=== PATIENT | female | born 1985 | race Caucasian/White ===

== ENCOUNTER 2016-07-19 11:05 | Emergency (ER) | payer BC ==
[2016-07-19] MEDS ORDERED: Ketorolac INJ* 60 MG/2 ML VIAL IM ONE (11:47)
--- NOTE | 2016-07-19 11:51 | UC ---
Dental HPI - HPI Summary HPI Summary: 30 female presents with complaints of right lower sided dental/mouth pain that began 2 days ago and worsened over night. Patient states she needs a tooth pulled and has issues with wisdom tooth in that area as well however has not had the procedure done yet. Has appointment with dentist tomorrow 07/20/16. Has tried taking tylenol 1500mg for pain with relief. Denies difficulty breathing or swallowing, fever/chills and nausea vomiting. Admits to swelling of right cheek. Denies discharge and blood. Has had similar symptoms in past with previous dental infections. - History of Current Complaint Chief Complaint: UCDentalProblem Stated Complaint: RIGHT SIDE MOUTH PAIN Time Seen by Provider: 07/19/16 11:40 Hx Obtained From: Patient Hx Last Menstrual Period: 05/31/16 ?: No Onset/Duration: Sudden Onset Severity: Moderate Pain Intensity: 9 Pain Scale Used: 0-10 Numeric Aggravating: Chewing Alleviating: Nothing Related History: Previous Dental Care on Same Tooth, Swelling - Allergies/Home Medications Allergies/Adverse Reactions: Allergies Allergy/AdvReac Type Severity Reaction Status Date / Time No Known Allergies Allergy Verified 07/19/16 11:31 PMH/Surg Hx/FS Hx/Imm Hx Endocrine History Of: Denies: Diabetes, Thyroid Disease Cardiovascular History Of: Reports: Hypertension Denies: Cardiac Disorders Respiratory History Of: Denies: Asthma - Surgical History Surgical History: None - Family History Known Family History: Positive: None - Social History Alcohol Use: None Substance Use Type: None Smoking Status (MU): Never Smoked Tobacco - Immunization History Most Recent Influenza Vaccination: Fall 2014 Vaccination Up to Date: Yes Review of Systems Constitutional: Negative Skin: Negative Eyes: Negative ENT: Dental Pain Respiratory: Negative Cardiovascular: Negative Gastrointestinal: Negative Motor: Negative Musculoskeletal: Negative Neurological: Negative All Other Systems Reviewed And Are Negative: Yes Physical Exam Triage Information Reviewed: Yes Appearance: Well-Appearing, No Pain Distress, Well-Nourished, Obese Vital Signs: Initial Vital Signs Temp 97.7 F 07/19/16 11:24 Pulse 76 07/19/16 11:24 Resp 16 07/19/16 11:24 Pulse Ox 99 07/19/16 11:24 Vital Signs Reviewed: Yes Eyes: Positive: Conjunctiva Clear ENT: Positive: Normal ENT inspection, Hearing grossly normal, Pharynx normal, TMs normal, Other: - patent airway and uvula midline. Negative: Nasal congestion, Nasal drainage, Tonsillar swelling, Tonsillar exudate, Trismus, Muffled/hoarse voice Dental: Positive: Gross Decay/Caries @, Dental Fracture @ - lower right molars, discolorations, no visualized abscess discharge or bleeding, Abscess @ - palpable firm small nodule noted lower right jaw, area obvious edema. Negative : Cervical Lymphadenopathy Neck: Positive: Supple, Nontender, No Lymphadenopathy Respiratory: Positive: Chest non-tender, Lungs clear, Normal breath sounds, No respiratory distress, No accessory muscle use Cardiovascular: Positive: RRR, No Murmur, Pulses Normal Musculoskeletal: Positive: Strength Intact Neurological: Positive: Alert Skin Exam: Normal Dental Complaint Course/Dx - Course Course Of Treatment: given toradol for pain while in office. antibiotics and pain mangement. dentist appointment tomorrow. follow up. aware of worsening signs and symptoms. swish with salt water. - Differential Dx/Diagnosis Differential Diagnosis/Dx: Dental Abscess, Dental Caries, Fractured Tooth, Other Provider Diagnoses: Dental abscess/dental infection, dental pain Discharge - Discharge Plan Condition: Stable Disposition: HOME Prescriptions: Amoxicillin CAP* [Amoxicillin 500 MG CAP*] 500 mg PO Q12H #20 cap Ibuprofen TAB* [Motrin TAB* 800 MG] 800 mg PO Q6H #15 tab Patient Education Materials: Dental Abscess (ED), Toothache (ED) Referrals: Lu Wang MD [Medical Doctor] - Additional Instructions: Take prescribed antibiotics as directed, even if symptoms improve. Take prescribed ibuprofen as directed for pain, one before bedtime (8pm or later ) and then tomorrow. Oralgel over the counter is also a topical numbing agent that may help soothe pain. Avoid cold drinks/foods. Ice the area of pain and swelling, multiple times daily, 20 minutes on and 20 minutes off. Keep good oral hygiene and recommend swishing with salt water. If symptoms worsen or you develop worsening signs/symptoms please return. Be sure to go to your dentist appointment tomorrow to have issue resolved.
== END 2016-07-19 12:05 | disposition home or self-care (01) ==
LOC: UCCORT 11:05
DX: K04.7 Periapical abscess without sinus (principal); K08.89 Other specified disorders of teeth and supporting structures; I10 Essential (primary) hypertension; E66.9 Obesity, unspecified
CPT/HCPCS: 96372; 99212; G0463; J1885

== ENCOUNTER 2017-09-20 14:31 | Emergency (ER) | payer BC ==
--- NOTE | 2017-09-20 14:46 | UC ---
Ear Complaint HPI - HPI Summary HPI Summary: 32 yo female c/o R ear pain, prog worse x approx 2-3 days. No fever / chills. No cough, cold, sob / cp. Denies current sinus issues. No rash. No GI issues. Hx similar x 1 in the past, but attributes to fluid behind ear. Does not think she grinds her teeth. No recent dental issues or repairs. - History of Current Complaint Stated Complaint: RT EAR COMP Time Seen by Provider: 09/20/17 14:43 Hx Obtained From: Patient Hx Last Menstrual Period: 05/31/16 ?: No - Allergies/Home Medications Allergies/Adverse Reactions: Allergies Allergy/AdvReac Type Severity Reaction Status Date / Time No Known Allergies Allergy Verified 07/19/16 11:31 Home Medications: Home Medications traZODone TAB* [Desyrel TAB*] 100 mg PO BEDTIME 09/20/17 [History Confirmed 12/29] PMH/Surg Hx/FS Hx/Imm Hx Previously Healthy: Yes - Surgical History Surgical History: None - Family History Known Family History: Positive: None - Social History Alcohol Use: None Substance Use Type: None Smoking Status (MU): Never Smoked Tobacco - Immunization History Most Recent Influenza Vaccination: Fall 2014 Vaccination Up to Date: Yes Review of Systems Constitutional: Negative Skin: Negative Eyes: Negative ENT: Ear Ache Respiratory: Negative Cardiovascular: Negative Gastrointestinal: Negative Genitourinary: Negative Motor: Negative Neurovascular: Negative Musculoskeletal: Negative Neurological: Negative Psychological: Negative Is Patient Immunocompromised?: No All Other Systems Reviewed And Are Negative: Yes Physical Exam Triage Information Reviewed: Yes Appearance: Well-Appearing, Well-Nourished Vital Signs Reviewed: Yes Eye Exam: Normal ENT Exam: Other Dental Exam: Other Neck exam: Normal Neck: Positive: Supple, Nontender, No Lymphadenopathy Respiratory Exam: Normal Respiratory: Positive: Chest non-tender, Lungs clear, Normal breath sounds, No respiratory distress, No accessory muscle use Cardiovascular Exam: Normal Cardiovascular: Positive: RRR, Pulses Normal, Brisk Capillary Refill Abdominal Exam: Normal Abdomen Description: Positive: Nontender Musculoskeletal Exam: Normal - gait steady, moves x 4 ext's Neurological Exam: Normal - grossly nonfocal, facial expressions grossly symmetric, no hearing complaints Psychological Exam: Normal - conversing easily and appropriately Skin Exam: Normal - no visible or reported rash Ear Complaint Course/Dx - Course Course Of Treatment: Several restorations, but no c/o pain. No evidence inflammation or fluctuance. + tender R TMJ area. No external fluctuance or redness appreciated. No hardik ant or lat muscle tenderness. Neck supple. TM' s bilat valente, retracted. However, R>L darker valente. Some mandibular "click." No rash visible or reported. Suspect combination serous otitis, and likely TMJ. Recommend dental check re mandibular alignment, and dental checkup ( consider albeit less likely dental issue). Also recommend f/u pcp, after dental checkup. Rx - antihistamine. Also nsaid, flexeril. D/w pt. Questions as posed answered to the best of my ability. - Differential Dx/Diagnosis Provider Diagnoses: Serous otitis. TMJ R Discharge - Sign-Out/Discharge Documenting (check all that apply): Patient Departure - Discharge Plan Condition: Stable Disposition: HOME Prescriptions: Cyclobenzaprine TAB* [Flexeril 10 MG TAB*] 10 mg PO TID PRN #21 tab PRN Reason: Spasms Naproxen TAB* [Naprosyn 250 mg TAB*] 500 mg PO Q12H PRN #30 tab PRN Reason: Pain Patient Education Materials: Antihistamine (By mouth), Temporomandibular Disorder (ED), Serous Otitis Media (ED) Referrals: Shy Dailey MD [Primary Care Provider] - Additional Instructions: Please follow up with your primary care physician in approximately one month. Follow up with your Dentist - call for appointment in the next 1-2 weeks if possible. Seek medical attention for worse or new problems in the meantime. - Billing Disposition and Condition Condition: STABLE Disposition: Home
[2017-09-20 14:47] VITALS: BP 128/74
== END 2017-09-20 15:08 | disposition home or self-care (01) ==
LOC: UCCORT 14:31
DX: H65.91 Unspecified nonsuppurative otitis media, right ear (principal); M26.601 Right temporomandibular joint disorder, unspecified
CPT/HCPCS: 99212; G0463

== ENCOUNTER 2019-01-10 07:06 | Inpatient (IN) | payer BC ==
[~2019-01-10 07:06] MED LIST: Buffered Lidocaine 1% SYRIN* 1 ML/SYRINGE INTRADERM ONE; Lactated Ringers 1000 ML Bag* 1,000 ML IV SCH; Sodium Citrate/Citric Acid* 15 ML UDC PO ONE
[2019-01-10] MEDS ORDERED: Heparin VIAL(*) 5000 UNITS/ML VIAL (FIVE THOUSAND) ONE (07:54)
[2019-01-10] MEDS ORDERED: Sodium Citrate/Citric Acid* 15 ML UDC ONE (07:54)
[2019-01-10] MEDS ORDERED: ceFAZolin 1 GM ADVAN(*) 1 GM ADDV.VIAL IVPB ONE (07:54)
[2019-01-10] MEDS ORDERED: ceFAZolin 2 GM PREMIX in ORs 2 GM/50 ML BAG ONE (07:54)
[2019-01-10] MEDS ORDERED: Bupivacaine 0.25% SDV PF* 10 ML VIAL INJ ONE ×2 (09:34→10:03)
[2019-01-10] MEDS ORDERED: Methylene Blue 0.5 %* 50 MG/10 ML AMP IV ONE (09:34)
[2019-01-10] MEDS ORDERED: Propofol* 10 MG/ML 20 ML BTL ONE (09:49)
[2019-01-10] MEDS ORDERED: Lidocaine 2% PF * 5 ML VIAL ONE (09:50)
[2019-01-10] MEDS ORDERED: Rocuronium* 10 MG/ML VIAL ONE ×2 (09:50→12:34)
[2019-01-10] MEDS ORDERED: fentaNYL* 50 MCG/ML 5 ML VIAL (250 MCG VIAL) ONE (10:03)
[2019-01-10] MEDS ORDERED: KETAMINE HCL* 50 MG/ML 10 ML VIAL ONE (10:03)
[2019-01-10] MEDS ORDERED: Midazolam* 1 MG/ML 2 ML VIAL (2 MG) ONE (10:03)
[2019-01-10] MEDS ORDERED: Dexamethasone IV* 4 MG/ML 1 ML (4 MG) ONE (12:25)
[2019-01-10] MEDS ORDERED: Sugammadex * 500 MG/5 ML VIAL IV PUSH ONE (13:30)
[2019-01-10] MEDS ORDERED: Naloxone* 0.4 MG/ML 1 ML VIAL IV PRN (13:58)
[2019-01-10] MEDS ORDERED: fentaNYL* 50 MCG/ML 2 ML VIAL (100 MCG VIAL) IV PRN (13:58)
[2019-01-10] MEDS ORDERED: Acetaminophen IV 1GM/100ML * 1,000 MG/100 ML VIAL IVPB ONE (13:58)
[2019-01-10] MEDS ORDERED: Ketorolac INJ* 30 MG/ML 1 ML VIAL IV PRN (13:58)
[2019-01-10] MEDS ORDERED: Ondansetron INJ* 2 MG/ML VIAL IV PRN ×2 (13:58→14:08)
--- NOTE | 2019-01-10 14:05 | BRIEFOPN ---
Brief Operative/Procedure Note - Operation Details Pre-Op Diagnosis: Morbid obesity and cholelithiasis Post-Op Diagnosis: same Procedures: Laparoscopic lysis of adhesions, cholecystectomy, and Melody en Y gastric bypass Surgeon(s)/Proceduralists: Yusef. Assist: BARBARA Felix Anesthesia: GET Estimated Blood Loss: 100 ml; IVF: 2000 ml crystalloid Findings: as above; also, omental adhesions to the umbilicus Specimen(s)/Culture(s) Description: gallbladder Complications: None. Drains: none
[2019-01-10] MEDS ORDERED: HYDROmorphone INJ1* 1 MG/ML SYRINGE IV SLOW PU PRN (14:08)
[2019-01-10] MEDS ORDERED: HYDROcodone/ACET. 7.5/325 LIQ* 15 ML UDC PO PRN (14:08)
[2019-01-10] MEDS ORDERED: Acetaminophen ADULT LIQ* 650 MG/20.3 ML UDC PO PRN (14:08)
[2019-01-10] MEDS ORDERED: Acetaminophen IV 1GM/100ML * 100 ML ONE (14:19)
[2019-01-10] MEDS ORDERED: Ketorolac INJ* 30 MG/ML 1 ML VIAL ONE (14:19)
[2019-01-10] MEDS ORDERED: Ondansetron INJ* 2 MG/ML VIAL ONE (14:19)
[2019-01-10] MEDS: Lactated Ringers 1000 ML Bag* 1,000 ML IV SCH ×2 (15:57→22:21)
[2019-01-10] MEDS: HYDROmorphone INJ* 0.5 MG/0.5 ML SYRINGE IV SLOW PU PRN (18:25)
[2019-01-10] MEDS: Metoprolol Tartrate IV* 1 MG/ML 5 ML VIAL IV SCH ×2 (19:48→22:55)
[2019-01-10] MEDS: Famotidine IV* 10 MG/ML 2 ML (20 mg) IV SLOW PU SCH (22:42)
[2019-01-10] MEDS: Heparin VIAL(*) 5000 UNITS/ML VIAL (FIVE THOUSAND) SUBCUT SCH (22:43)
[2019-01-10] MEDS: Ketorolac INJ* 30 MG/ML 1 ML VIAL IV SCH (22:43)
--- NOTE | 2019-01-11 02:56 | OP ---
CC: Dotty Arcos NP, phone [phone], ; [facility] * DATE OF OPERATION: 01/10/19 - ROOM #351 DATE OF : 85 PRIMARY CARE DOCTOR: Dr. Dotty Arcos. SURGEON: Riaz Holbrook MD. VACUUM DRIER TENDER: BARBARA Brooks. ANESTHESIOLOGIST: Dr. Gamez. ANESTHESIA: General anesthesia. PRE-OP DIAGNOSES: 1. Clinically severe obesity. 2. Cholelithiasis. 3. Hypertension. 4. Polycystic ovary disease. POST-OP DIAGNOSES: 1. Clinically severe obesity. 2. Cholelithiasis. 3. Hypertension. 4. Polycystic ovary disease. OPERATIVE PROCEDURE: Laparoscopic cholecystectomy and Melody-en-Y gastric bypass procedure. ESTIMATED BLOOD LOSS: 100 cc. FLUIDS: 2000 cc of crystalloid fluid given. SPECIMENS: Gallbladder. DRAINS: None. DESCRIPTION OF PROCEDURE: The patient was identified in the preoperative area, consent was signed. I discussed the case with her and her family member. She was marked, seen by the operating staff, and brought to the OR, placed on the operating room table in a supine position. Preoperative antibiotics were given. Sequential devices were placed on bilateral lower extremities. General anesthesia was induced. The patient was examined, prepped, and draped in the standard surgical fashion, a time-out was performed. Folds of the umbilicus were elevated anteriorly and a Veress needle inserted into the abdominal cavity which was then allowed to insufflate to a pressure of 15 mmHg. The patient tolerated the insufflation well. [place] between the xiphoid and umbilicus, just left of midline, a 12 mm optical trocar was inserted , laparoscope was inserted through this. There was no evidence of injury from the trocar insertion or from the Veress needle, which was then removed. Additional trocars were then placed in the following position: A 12 mm in the right upper quadrant and a 5 mm in the right lateral abdomen, and then placed a 5 mm in the subxiphoid site. The table was repositioned to a wekox-pynr-jq reverse Trendelenburg fashion to identify the gallbladder. There were adhesions at the mid portions of the gallbladder, these were taken down sharply and so we could see the rest of the body and the infundibular region. The infundibular region was grasped and retracted towards the right lower quadrant. We dissected over the node of Calot with LigaSure device and similarly to see peritoneum off the lateral aspect of the gallbladder. It was an elongated the gallbladder and we were able to isolate what appeared to be the cystic duct. Cystic artery was not so obvious. We did ligate the vessels within the posterior aspect of the gallbladder and ultimately got behind the proper portion of the gallbladder. We noted that there was only 1 structure bending towards this and thought this could be the cystic duct that we saw originally. This was doubly clipped and ligated and the gallbladder was removed from the liver bed and placed in an endoscopic retrieval bag. Review of the cystic duct stump showed no bile, there had been some oozing and we placed a portion of Surgicel at this site and then placed the gallbladder over the liver and then removed the string of the bag through the site of the 5 mm lateral port. We then turned our attention to the mid abdomen. Additional trocars were then placed in the following positions: 12 mm and 5 mm in the left upper quadrant. With LigaSure device we then lysed the adhesions of the omentum to the anterior abdominal wall anteriorly so that we could retract the omentum superiorly. Once this was taken, we then turned our attention to the upper abdomen. Table was repositioned back to the deep reverse Trendelenburg. The 5 mm port was removed from the subxiphoid area. A David retractor was inserted at this site and the liver was retracted anteriorly to the right. It was a significantly large liver, but we were able to move it. We then could see the gastroesophageal fat pad. This fat pad was grasped and retracted to the right lower quadrant. Blunt and sharp dissection was carried out to free up the lateral spaces, just lateral to the left cameron. Next a retrogastric tunnel was made at the 3rd crossing vessel with a 45 mm frost TRELL stapling device. We did note some bleeding along the lesser curvature and this was taken with a LigaSure device and hemostasis was excellent. We completed the gastric pouch with 2 additional 60 mm frost TRELL stapling devices. A 32-Cuban Lilly tube was passed by the anesthesiologist into the stomach pouch prior to firing the last staple load. The pouch appeared appropriate size. We then turned our attention to the omentum, but it appeared that it was not a significant amount that would make a difference, so this was abandoned. We then identified the Ligament of Treitz and 50 cm was counted off from the Ligament of Treitz and then in the appropriate orientation an omega loop was placed on both the side of the gastric pouch. 2-0 silk sutures were placed as stay sutures and then the gastric jejunostomy was made in a standard fashion with 30 mm frost TRELL stapling device making a gastrotomy over the Lilly tube and an enterotomy. They were mated and the common defect closed with 3-0 PDS suture starting superiorly and inferiorly and tying in the middle, closing the full defect. Next the Lilly tube was passed through the anastomosis with ease. We then transected the omega loop to allow the biliopancreatic limb to fall away and then did a methylene blue dye test and this was negative. Next, we counted 100 cm from the Melody limb and brought this in apposition to the biliopancreatic limb. Enterotomies were made and a jejunojejunostomy was created in a standard fashion with 60 mm frost TRELL stapling device and the common defect closed with interrupted 2-0 silk sutures in a [id number] fashion. The mesenteric defect was similarly closed. Next I reviewed the abdomen, it showed no enteric contents, no bleeding. I did place a portion of the Surgicel along the mesenteric closure to avoid adhesions at the site. We then turned our attention to the gallbladder fossa, this showed no bleeding, hemostasis was excellent. We then removed the gallbladder in its endoscopic retrieval bag through the 12 mm port site. Table was repositioned back. The David retractor was removed. The abdomen was allowed to collapse, trocars were removed, and all incisions were reapproximated with 4-0 Monocryl subcuticular sutures followed by Steri-Strips and sterile dressing. The patient tolerated the procedure well, was transferred to the PACU in stable condition. [id number]/[facility] #: [id number] JA
[2019-01-11] MEDS: Ketorolac INJ* 30 MG/ML 1 ML VIAL IV SCH ×4 (03:01→22:52)
[2019-01-11] MEDS: Metoprolol Tartrate IV* 1 MG/ML 5 ML VIAL IV SCH ×4 (03:02→22:52)
[2019-01-11] MEDS: Lactated Ringers 1000 ML Bag* 1,000 ML IV SCH ×2 (05:18→13:10)
[2019-01-11 05:28] LABS: ABS Basophils 0.1 10^3/ul (0-0.2); ABS Lymphocytes 2.3 10^3/ul (1.0-4.8); ABS Monocytes 0.6 10^3/ul (0-0.8); ABS Neutrophils 8.4 10^3/ul (1.5-7.7); Eosinophil % 0.1 %; Hematocrit 35 % (35-47); Hemoglobin 11.8 g/dL (12.0-16.0); Lymphocyte % 20.5 %; Mean Corpuscular HGB Conc 34 g/dL (31-36); Mean Corpuscular Hemoglobin 30 pg (27-31); Mean Corpuscular Volume 90 fL (80-97); Mean Platelet Volume 8.7 fL (7.4-10.4); Platelet Count 300 10^3/uL (150-450); Red Cell Distribution Width 14 % (10-15); White Blood Count 11.4 10^3/uL (3.5-10.8)
[2019-01-11] MEDS: Heparin VIAL(*) 5000 UNITS/ML VIAL (FIVE THOUSAND) SUBCUT SCH ×3 (06:03→22:52)
[2019-01-11] MEDS: Famotidine IV* 10 MG/ML 2 ML (20 mg) IV SLOW PU SCH ×2 (08:42→22:52)
--- NOTE | 2019-01-11 11:02 | PN ---
Progress Note - Progress Note Date of Service: 01/11/19 Note: S: POD #1. Doing well. Pain controlled. No N/V. Up and ambulating. Was seen by Dr. Holbrook while down in radiology. O: Vital Signs - 8 hr 01/11/19 01/11/19 01/11/19 03:52 07:42 07:50 Temperature 98.4 F Pulse Rate 74 Respiratory 16 18 Rate Blood Pressure 118/72 (mmHg) O2 Sat by Pulse 94 95 Oximetry Intake and Output Last 24 Hours 01/09/19 01/10/19 01/11/19 01/12/19 06:59 06:59 06:59 06:59 Intake Total 2980 Output Total 1100 300 Balance 1880 -300 Weight 353 lb 9.6 oz Intake: IV Fluids 2980 LR 2980 Oral 0 Output: Urine 1100 300 Gen: sitting up in bed; appears comfortable Heart: reg Lungs: clear Abd: +BS; lap sites ok under Tegaderm dsgs; soft; min tenderness to palp UGI: patent; no leak A: s/p lap jonnathan w/ gastric bypass, doing well P: bariatric clear liquids; encourage ambulation, IS use; prob d/c home tomorrow
[2019-01-11] MEDS: D5W 1/2 NS KCl 20 Meq 1000 ML* 1,000 ML IV SCH (15:59)
[2019-01-11] MEDS: HYDROmorphone INJ* 0.5 MG/0.5 ML SYRINGE IV SLOW PU PRN (19:44)
[2019-01-12] MEDS: D5W 1/2 NS KCl 20 Meq 1000 ML* 1,000 ML IV SCH (00:12)
[2019-01-12] MEDS: Ketorolac INJ* 30 MG/ML 1 ML VIAL IV SCH (03:27)
[2019-01-12] MEDS: Metoprolol Tartrate IV* 1 MG/ML 5 ML VIAL IV SCH (03:27)
[2019-01-12] MEDS: Heparin VIAL(*) 5000 UNITS/ML VIAL (FIVE THOUSAND) SUBCUT SCH (05:40)
[2019-01-12 07:51] VITALS: BP 127/67
--- NOTE | 2019-01-12 08:52 | PN ---
Progress Note - Progress Note Date of Service: 01/12/19 SOAP: Subjective:passing flatus,meeting po goals;ambulating;not taking pain med [] Objective: Vital Signs Temp 98.2 F 01/12/19 07:50 Pulse 69 01/12/19 07:50 Resp 16 01/12/19 07:50 BP 127/67 01/12/19 07:50 Pulse Ox 98 01/12/19 07:50 Intake & Output 01/11/19 01/12/19 01/12/19 18:59 06:59 18:59 Intake Total 1915 1550 Output Total 1650 1500 Balance 265 50 Intake: IV Fluids 1435 980 D5W 1/2 NS 20 meq KCL 980 LR 1435 Oral 480 570 Output: Urine 1650 1500 Other: Date of Last Bowel 01/11/2019 Movement # Bowel Movements 1 Estimated Stool Amount Medium lungs:clear bilat;heart:RRR;abd:obese,+bs;incisions c/d/i with steristrips,no erythema or drainage;ext:nontender calves [] Assessment:POD#2 s/p lap gastric bypass and lap jonnathan,stable,doing well [] Plan:discharge home today,instructions reviewed,office visit at [facility] 01/16/[address] Holbrook []
[2019-01-12] MEDS ORDERED: Influenza VAC *QUAD* 2019-20* 0.5 ML SYRINGE IM ONE (09:00)
--- NOTE | 2019-01-12 10:50 | DS ---
AMENDED REPORT NOW INCLUDES DESIGNATED COSIGNER CC: Dr. Holbrook; [facility] * DISCHARGE SUMMARY: DATE OF ADMISSION: 01/10/19 DATE OF DISCHARGE: 01/12/19 ATTENDING SURGEON: Riaz Holbrook MD * (DICTATED BY TIA MCGOWAN NP) HOSPITAL COURSE: Please refer to admission history and physical for admission details. The patient was taken to the operating room on Tuesday01/10/19 and underwent laparoscopic cholecystectomy and Melody-en-Y gastric bypass by Dr. Holbrook. She had an uneventful postoperative course and required minimal pain medication and was able to meet the criteria for oral intake of bariatric clear liquids. She was ambulating in the halls and using her Inspiron. She was passing flatus and denied any dysuria. She was seen this morning by myself and met criteria for discharge and Dr. Holbrook agreed with the plan. PHYSICAL EXAMINATION: General: Well appearing in no acute distress. Vital signs are stable. She is afebrile and O2 saturation is 98% on room air. Lungs : Breath sounds bilaterally clear and equal. Heart: Regular, rate and rhythm. No murmurs or rubs appreciated. Abdomen: Obese, active bowel sounds. Laparoscopic port sites are clean, dry and intact with Steri-Strips. No surrounding erythema, no drainage. Abdomen is soft with appropriate incisional tenderness. Skin: Warm and dry. Extremities: Nontender calves CONDITION: Stable. IMPRESSION: Post op day #2 status post laparoscopic cholecystectomy and Melody-en -Y gastric bypass, doing extremely well. PLAN: Discharged home today; instructions were reviewed with the patient and she expressed understanding; she has a followup appointment at [facility] with Yusef Anderson on 01/16/19; all of her medications are reviewed. Her metoprolol was decreased from 100 mg extended release daily to metoprolol tartrate 50 mg p.o. daily (this is not the extended release); she has a prescription for liquid hydrocodone as needed and she knows she may use nged-mbn-adsdywa liquid Tylenol for mild pain. All of her questions were answered. She knows to call with any concerns. TIME SPENT: Time spent in the discharge process was 45 minutes with greater than 50% in [id number] patient education. TIA MCGOWAN, [employer] OPERATOR [id number]/[facility] #: [id number] JA
== END 2019-01-12 10:35 | disposition home or self-care (01) | DRG 403 ==
LOC: AA 07:06 → SSU 14:08
PROVIDERS: ADMIT Surgery; ATTEND Surgery
PROC: 0D164ZA Bypass Stomach to Jejunum, Percutaneous Endoscopic Approach (ICD-10-PCS; principal; 2019-01-10 09:30)
PROC: 0FT44ZZ Resection of Gallbladder, Percutaneous Endoscopic Approach (ICD-10-PCS; 2019-01-10 09:30)
DX: E66.01 Morbid (severe) obesity due to excess calories (principal); Z68.44 Body mass index [BMI] 60.0-69.9, adult; I10 Essential (primary) hypertension; E28.2 Polycystic ovarian syndrome; K80.20 Calculus of gallbladder without cholecystitis without obstruction; Z98.51 Tubal ligation status; Z83.3 Family history of diabetes mellitus; Z23 Encounter for immunization
CPT/HCPCS: 36415; 74246; 85025; 88304; 90686; A9270-GY; C1776; J0690; J1100; J1170; J1644; J1885; J2250; J2405; J2704; J3010; J3490